=== PATIENT | male | born 1955 | race Caucasian/White ===

== ENCOUNTER 2017-06-26 08:19 | Day surgery (SDC) | payer MEDICARE ==
[~2017-06-26] VITALS: Ht 182.9 cm; Wt 90.7 kg
--- NOTE | ~2017-06-26 | EGD ---
EGD REPORT [facility] [address] [place] [place] [address] NAME: MALIKA GREENE : [birth year] STATUS : [facility]#: [id number] AGE: 61 ADM/REG DATE : 06/26/17 MR#: [id number] REPORT SERV DATE: 06/30/17 DICTATED BY: BRADY RODRIGUEZ DATE: 06/30/17 REPORT STATUS : Draft TRANSCRIBED BY: [facility] DATE: 06/30/17 [facility] Center Patient Name: Malika Greene Date of : 1955 Attending MD: BRADY RODRIGUEZ MD Procedure Date No Time: 06/26/2017 Procedure: Colonoscopy Indications: Colon cancer screening in patient at increased risk: Family history of colon polyps Referring MD: KENAN PRATER Medicines: as per anesthesia Complications: No immediate complications. Procedure: Pre-Anesthesia Assessment: - ASA Grade Assessment: II - A patient with mild systemic disease. After I obtained informed consent, the scope was passed under direct vision. Throughout the procedure, the patient's blood pressure, pulse, and oxygen saturations were monitored continuously. The PCF [id number] was introduced through the anus and advanced to the cecum, identified by appendiceal orifice and ileocecal valve. The colonoscopy was performed without difficulty. The patient tolerated the procedure. The quality of the bowel preparation was adequate to identify polyps. Findings: The perianal and digital rectal examinations were normal. Internal hemorrhoids were found during endoscopy and were mild. Impression: - Internal hemorrhoids. Recommendation: - Repeat colonoscopy in 5 years for surveillance. Procedure Code(s): --- Professional --- 88725, Colonoscopy, flexible, proximal to splenic flexure; diagnostic, with or without collection of specimen(s) by brushing or washing, with or without colon decompression (separate procedure) Diagnosis Code(s): --- Professional --- K64.8, Other hemorrhoids Z12.11, Encounter for screening for malignant neoplasm of colon Z83.71, Family history of colonic polyps EGD REPORT [facility] [address] [facility] [place] [address] NAME: MALIKA GREENE : [birth year] STATUS : [facility]#: [id number] AGE: 61 ADM/REG DATE : 06/26/17 MR#: [id number] REPORT SERV DATE: 06/30/17 DICTATED BY: BRADY RODRIGUEZ. DATE: 06/30/17 REPORT STATUS : Draft TRANSCRIBED BY: [email or web address] DATE: 06/30/17 CPT copyright 2013 [employer]. All rights reserved. The codes documented in this report are preliminary and upon silk screen repairer review may be revised to meet current compliance requirements. BRADY RODRIGUEZ MD 06/26/2017 10:29 AM This report has been signed electronically. Number of Addenda: 0 Note Initiated On: 06/26/2017 9:53 AM Scope Withdrawal Time 0 hours 6 minutes [address] [place] [address]
[~2017-06-26 08:19] MED LIST: FLOMAX4 PO; LEXAPRO10 PO; METAMUCIL CAN7 OZ PO; MULTIPLE VIT PO
== END 2017-06-26 23:59 | disposition home or self-care (01) ==
LOC: DMU 08:19
PROVIDERS: Internal Medicine Gastroenterology
PROC: 0DJD8ZZ Inspection of Lower Intestinal Tract, Via Natural or Artificial Opening Endoscopic (ICD-10-PCS; principal; 2017-06-26 08:35)
DX: Z12.11 Encounter for screening for malignant neoplasm of colon (principal); K64.8 Other hemorrhoids; N40.0 Benign prostatic hyperplasia without lower urinary tract symptoms; M50.30 Other cervical disc degeneration, unspecified cervical region; F32.9 Major depressive disorder, single episode, unspecified; F41.9 Anxiety disorder, unspecified; Z83.71 Family history of colonic polyps; Z79.899 Other long term (current) drug therapy; Z98.890 Other specified postprocedural states